=== PATIENT | female | born 1935 | race Caucasian/White ===

== ENCOUNTER 2017-04-15 05:48 | Inpatient (IN) | payer OTHER ==
[~2017-04-15] VITALS: Ht 157.5 cm; Wt 70.6 kg
--- NOTE | ~2017-04-15 | CR4 ---
[facility] A Service of [facility] RADIOLOGY TEXT RESULTS PATIENT: KIMBERLY GREER LOCATION: [place] [address] : [birth year] UNIT #: [id number] AGE: [address]: Albina Baca MD SEX: F ORDER DR: [id number] [facility] [address] [facility]. [place], [place] [address] [id number] MR#: [id number] #: [id number] NAME: KIMBERLY GREER. : 1935 SEX: F STUDY DATE/TIME: 04/17/2017 8:22 UNIT: [facility] ROOM: [facility] STUDY DESCRIPTION: CR Abdomen Flat Upright or Dec Attending Physician: Albina Baca M.D. Ordering Physician: Niles Leach M.D. Primary Care Physician: Hood Villa M.D. MEDICAL IMAGING REPORT This report is preliminary unless electronic signature is present EXAM Flat and upright abdomen 04/17/2017 INDICATIONS Abdominal pain, pancreatitis, small bowel obstruction symptoms 4 days. TECHNIQUE Flat and upright abdomen compared with CT 04/15/2017. FINDINGS Upright view demonstrates no free air. There are air-fluid levels within nondilated small bowel loops centrally in the abdomen. There is air and stool within the colon. Findings suggest a small bowel ileus. No mass effect or concerning calcifications. Probable vascular calcifications in the pelvis. Degenerative change in the lumbar spine with a left lumbar curve. IMPRESSION 1. No evidence of free air. There are air-fluid levels in nondilated small bowel loops likely reflecting an underlying small bowel ileus. Colonic gas also present. Dictated by... Romeo Adams M.D. THIS IS AN ELECTRONICALLY VERIFIED REPORT Romeo Adams M.D. at 04/18/2017 7:34 AM CACHORRO/tessy TD: 04/18/2017 06:48 JOB #: [id number] [facility] A Service [facility] RADIOLOGY TEXT RESULTS PATIENT: KIMBERLY GREER [facility] [place] [address] [id number] : [birth year] UNIT #: [id number] AGE: [address]: Albina Baca MD SEX: F ORDER DR: MEDICAL IMAGING REPORT Page 1 of 1 COPY
--- NOTE | ~2017-04-15 | EKG ---
PATIENT: KIMBERLY GREER UNIT #: [id number] Ventricular Rate: 61 BPM Atrial Rate: 61 BPM P-R Interval: 230 ms QRS Duration: 138 ms Q-T Interval: 430 ms QTC Calculation(Bezet): 432 ms P Flint: 74 degrees Calculated R Flint: 32 degrees Calculated T Flint: 50 degrees Diagnosis Line: Sinus rhythm with 1st degree A-V block with Diagnosis Line: Premature supraventricular complexes and with Diagnosis Line: occasional Premature ventricular complexes Diagnosis Line: Non-specific intra-ventricular conduction block Diagnosis Line: Abnormal ECG Diagnosis Line: When compared with ECG of 28-OCT-2012 09:16, Diagnosis Line: Premature ventricular complexes are now Present Diagnosis Line: Premature supraventricular complexes are now Diagnosis Line: Present Diagnosis Line: QRS duration has increased Diagnosis Line: T wave amplitude has decreased in Inferior leads Diagnosis Line: Confirmed by LANG MA MD ([id number]) on Diagnosis Line: 04/15/2017 11:38:23 AM INTERPRETING MD: ANIL ESPARZA
--- NOTE | ~2017-04-15 | HP ---
Unit #: [id number] #: [id number] Patient: KIMBERLY GREER [id number] [address] [address] [id number] I MR#: [id number] NAME: KIMBERLY GREER ROOM: 255[address] Age: 82 Sex: F Admission Date: 04/15/2017 : 1935 Attending Physician: Albina Baca M.D. Primary Care Physician: Hood Villa M.D. HISTORY AND PHYSICAL CHIEF COMPLAINT Severe abdominal cramps with vomiting. HISTORY OF PRESENT ILLNESS The patient is an 82-year-old female with past medical history of hypertension, cervical cancer, who presented to the emergency department for evaluation of the above. The patient states that she was in her usual state of health until the evening prior to admission around 10 p.m. when she experienced abdominal pain. She states that the pain is in the upper abdomen. She describes it as "severe." There are no exacerbating or alleviating factors. She states that she had similar pain on April 10 and that was less severe and resolved spontaneously. She has had two bouts of nonbloody emesis and no diarrhea within the past 24 hours. She denies any urinary symptoms. No fever. No cough or cold symptoms. In the emergency department, initial pulse and blood pressure were 75 and 148/70 respectively. Amylase and lipase are 183 and 260 respectively. She was given 1 L of normal saline as well as 4 mg of Zofran, 20 mg of Pepcid. She is being admitted to [facility] for evaluation and further treatment. PAST MEDICAL HISTORY 1. The patient denies hospitalizations within the past 10 years. 2. Hypertension. 3. History of cervical cancer, status post hysterectomy and radiation treatment. PAST SURGICAL HISTORY 1. Hysterectomy. 2. Thyroidectomy for benign problem. 3. Surgery for broken femur. SOCIAL HISTORY The patient lives alone. There is no tobacco or alcohol use. FAMILY HISTORY Notable for Parkinson disease. ALLERGIES No known allergies. HOME MEDICATIONS Unit #: [id number] #: [id number] Patient: KIMBERLY GREER Lisinopril 10 mg daily. REVIEW OF SYSTEMS A complete review of systems is negative except as indicated in the HPI. The patient states that she has had endoscopy but it has been more than 10 years ago (no records). DIAGNOSTIC STUDIES LABORATORY: Amylase and lipase are 183 and 260 respectively. BUN and creatinine are 23 and 1.3 respectively, glucose 122. Complete blood count notable for white blood cell count of 10.7. Troponin is less than 0.05. Lactic acid is 1.3. Urinalysis notable for trace leukocyte esterase, 5-10 red blood cells. CARDIOVASCULAR: EKG shows sinus rhythm with first degree AV block and occasional PVCs, rate of 61 beats per minute. PHYSICAL EXAMINATION VITAL SIGNS: Temperature is 97.9, pulse 75, respirations 18, blood pressure 148/70, oxygen saturation 99% on room air. GENERAL: The patient is a very pleasant female who is awake and alert in no acute distress. HEENT: The head is atraumatic. Mucous membranes are moist. NECK: Supple. Trachea is midline. CARDIOVASCULAR: Regular rate and rhythm. LUNGS: Clear to auscultation bilaterally with no increased work of breathing. ABDOMEN: Soft. She is tender to palpation in the epigastric area. Bowel sounds are present in all four quadrants. EXTREMITIES: Nontender with no pedal edema. NEUROLOGIC: The patient is awake and alert. She follows commands. PSYCHIATRIC: Mood and affect are normal. The patient is cooperative. SKIN: Skin of examined areas is warm and dry. ASSESSMENT The patient is an 82-year-old female with: 1. Acute pancreatitis with amylase and lipase of 183 and 260 respectively. The patient is on lisinopril, which could be contributing. 2. Leukocytosis with white blood cell count of 10.7. 3. Acute kidney injury: The patient's creatinine is 1.3. Creatinine was 1May 17, 2013. 4. Hypertension. 5. History of cervical cancer, status post hysterectomy and radiation treatment. PLAN 1. Admit to intermediate level. 2. NPO. 3. Normal saline at 75 mL/hr. 4. P.r.n. Zofran. 5. Protonix. 6. Fasting lipid panel. 7. Check CT of the abdomen and pelvis without contrast. 8. Serial cardiac enzymes. 9. Blood cultures x2 for further evaluation of leukocytosis. 10. Repeat labs in the morning including amylase and lipase. 11. SCDs for DVT prophylaxis. Unit #: [id number] #: [id number] Patient: KIMBERLY GREER 12. Additional workup and consultants based on above. Dictated by Emi Fishman/hamzah TD: 04/15/2017 12:11 JOB #: [id number] HISTORY AND PHYSICAL Page 1 of 1 X Albina Baca MD X HISTORY AND PHYSICAL
--- NOTE | ~2017-04-15 | DS ---
Unit #: [id number] #: [id number] Patient: KIMBERLY GREER [id number] [address] [address] [id number] I MR#: [id number] NAME: KIMBERLY GREER ROOM: 55 Age: 82 Sex: F Admission Date: 04/15/2017 : 1935 Discharge Date: 04/19/2017 Attending Physician: Michael Garcia M.D. Primary Care Physician: Hood Vlila M.D. DISCHARGE SUMMARY DISCHARGE DIAGNOSES 1. Acute pancreatitis. 2. Small bowel obstruction. 3. Ileus. HOSPITAL COURSE The patient is an 82-year-old woman who presented to the hospital with significant abdominal pain located over the epigastric area associated with vomiting. The patient had a CAT scan of the abdomen that demonstrated dilated pancreatic duct at 9 mm, no mass seen. Patient also had dilated small bowel loops with distal (1) suggestive of possible small bowel obstruction or ileus. During her admission, she was kept NPO. Received IV fluids for hydration. Her small bowel obstruction eventually resolved. She started having bowel movements and tolerating meals. Also during her admission she was followed by gastroenterology who plans on doing an outpatient endoscopic ultrasound for further evaluation of the pancreas and dilated pancreatic duct. The patient's TSH was noted to be elevated at 6.73. The patient will be started on low-dose levothyroxine 25 mcg tab one p.o. once daily. DISCHARGE MEDICATIONS 1. Lisinopril 10 mg half tablet p.o. once daily. 2. Pepcid 20 mg tab one p.o. once daily. 3. Levothyroxine 25 mcg tab one p.o. once daily. DISCHARGE INSTRUCTIONS 1. Patient needs to followup with electric meter technician, Dr. Leach, as an outpatient for further outpatient workup with endoscopic ultrasound for evaluation of the pancreas and pancreatic duct. 2. Patient also to follow up with primary care physician. Dictated by... Emi Zarate/hamzah TD: 04/20/2017 16:59 JOB #: [id number] Unit #: [id number] #: [id number] Patient: KIMBERLY GREER DISCHARGE SUMMARY Page 1 of 1 X X DISCHARGE SUMMARY
--- NOTE | ~2017-04-15 | CT4 ---
[facility] A Service of [facility] RADIOLOGY TEXT RESULTS PATIENT: KIMBERLY GREER LOCATION: [facility] [id number] : 36 UNIT #: [id number] AGE: [address]: Albina Baca MD SEX: F ORDER DR: [id number] [facility] [address] [facility]. [place], [place] [address] [id number] I MR#: [id number] Acc #: [id number] NAME: KIMBERLY GREER : 1935 SEX: F STUDY DATE/TIME: 04/15/2017 UNIT: [facility] ROOM: [address] STUDY DESCRIPTION: CT Abd and Pelv Wo Cont Attending Physician: Albina Baca M.D. Ordering Physician: Albina Baca M.D. Primary Care Physician: Hood Villa M.D. MEDICAL IMAGING REPORT This report is preliminary unless electronic signature is present EXAM CT abdomen and pelvis without contrast, 04/15/2017, 1125 hours. HISTORY 82-year-old woman with left upper quadrant pain and vomiting since 2200 hours on 04/14/2017. COMPARISON None TECHNIQUE Helical noncontrasted images were obtained from the lung bases through the pubic symphysis without oral or intravenous contrast. Sagittal and coronal reconstructions were performed. Total exam DLP 619 mGy-cm. This CT exam was performed with one or more of the following radiation dose reduction techniques: automatic exposure control, adjustment of mA and/or kV according to patient size, and iterative reconstruction. FINDINGS Images through the lung bases demonstrate overall normal heart size with no pericardial or pleural effusion. There are benign calcified nodes and a calcified granuloma at the right base. Circumferential wall thickening of the distal esophagus cannot be excluded. Images through the abdomen demonstrate a normal appearance to the liver and spleen. The gallbladder is surgically absent. The bile ducts are not dilated. The pancreas demonstrates mild atrophy. There is a dilated pancreatic duct seen at the neck and body of the pancreas, measuring up to 9 mm, which is abnormal. No mass or stone is detected in the head of the pancreas. Suggest correlation with lab values. Consider followup exam with contrast if warranted. The adrenal glands are normal. [facility] A Service of [facility] RADIOLOGY TEXT RESULTS PATIENT: KIMBERLY GREER LOCATION: [facility] [id number] : [birth year] UNIT #: [id number] AGE: [address]: Albina Baca MD SEX: F ORDER DR: There is low density at both renal pelves with the appearance favoring parapelvic cysts over dilated collecting systems. There is no ureterectasis. No stone. No evidence of renal mass. The abdominal aorta is normal in caliber with mild atherosclerotic change. The stomach contains fluid and debris but no wall thickening. The small bowel has an increased amount of fluid throughout and is mildly prominent in size. The distal small bowel loops in the pelvis are nondilated. There is no abrupt transition. Findings could represent adynamic ileus or early or partial small bowel obstruction. The appendix is normal. The colon is mostly decompressed. There is no colonic wall thickening or distension. CT pelvis demonstrates a normal appearance to the bladder. There is inferiorly displaced pelvic floor with prominence of the soft tissues of the rectum. This could be due to mild prolapse. An underlying rectal mass is difficult to exclude, given this appearance. IMPRESSION 1. There is a dilated pancreatic duct in the neck and body of the pancreas, measuring up to 9 mm with no definite mass or stones seen. There is no prior study for comparison. Correlate with lab values. Consider followup CT with contrast and pancreatic protocol, if warranted. 2. There is fluid density prominence at both renal pelves with appearance favoring multiple parapelvic cysts rather than obstruction. No stones are seen. 3. Normal appendix. 4. There are fluid-filled mildly dilated loops of small bowel proximally with decompressed loops of small bowel distally. There is increased fluid in the proximal small bowel. This could represent mild adynamic ileus; however, an early or partial small bowel obstruction could have this appearance. The colon is nondilated. 5. It appears that there is pelvic relaxation with inferior placement of the pelvic soft tissues, including the rectum. There is suggested wall thickening of the rectum in the area of possible prolapse. This is difficult to assess. Correlate with physical exam. 6. Multilevel degenerative changes in the lumbar spine with no acute fracture or malalignment. STAT * RESULT Dictated by... Lilliana Salgado M.D. THIS IS AN ELECTRONICALLY VERIFIED REPORT Lilliana Salgado M.D. at 04/15/2017 1:26 PM [facility] A Service of [facility] RADIOLOGY TEXT RESULTS PATIENT: KIMBERLY GREER LOCATION: [facility] [address] : 36 UNIT #: [id number] AGE: [address]: Albina Baca MD SEX: F ORDER DR: Ariel TD: 04/15/2017 12:21 JOB #: [id number] MEDICAL IMAGING REPORT Page 1 of 1 COPY
--- NOTE | ~2017-04-15 | CO ---
Unit #: [id number] #: [id number] Patient: KIMBERLY COELLO [id number] [address] [address] [id number] I MR#: [id number] NAME: KIMBERLY COELLO ROOM: 55 Age: 82 Sex: F Admission Date: 04/15/2017 : 1935 Attending Physician: Albina Baca M.D. Primary Care Physician: Hood Villa M.D. Consultation Date: 04/16/2017 CONSULTATION REPORT PRIMARY CARE PHYSICIAN Hood Villa M.D. REASON FOR CONSULTATION Acute pancreatitis. HISTORY OF PRESENT ILLNESS Ms. Coello is a pleasant 82-year-old female, who was admitted yesterday with complaints of abdominal pain. She had severe epigastric pain. She rates it at 10/10 associated with vomiting started . There has been no fever, but some chills. No change in bowel movements. Last bowel movement was yesterday. There has not been any hematemesis or melena. She has not had any similar symptoms in the past; however, for the last few days before this, she had a minor similar symptoms. She had her gallbladder removed long time ago. PAST MEDICAL HISTORY Cervical cancer, status post complete hysterectomy and some radiation treatment. SOCIAL HISTORY Nonsmoker. Nonalcoholic. FAMILY HISTORY Noncontributory. ALLERGIES None. MEDICATIONS At home included lisinopril. REVIEW OF SYSTEMS A complete review of systems was done. No weight loss. No change in appetite. She has no significant bowel symptoms prior to this episode. Review of all other systems was negative. DIAGNOSTIC STUDIES IMAGING STUDIES: CT scan shows a dilated PD at 9 mm. No mass seen. Dilated small-bowel loops with distal collapse, suggestive of possible small-bowel obstruction. LABORATORY RESULTS: Amylase and lipase were both elevated at 183 and 260, somewhat low today. Still not normal. BUN and creatinine are 23 and 1.3. Unit #: [id number] #: [id number] Patient: KIMBERLY COELLO Cardiac enzymes negative. Hemoglobin of 11. White count and platelet counts are normal. ASSESSMENT AND PLAN 1. Acute pain along with elevated amylase and lipase, suggestive of acute pancreatitis. The patient had significant pancreatic duct dilation that suggests chronic pancreatitis changes. She is status post cholecystectomy. She does not drink alcohol. I will be concerned about possible tumor. At this point, we continue with conservative treatment. Start on some liquids and if tolerated, advance diet. She will check for tumor markers. We will also get an EUS for further evaluation of the pancreas as an outpatient in near future. 2. Possible smell bowel obstruction, could be ileus related to acute pancreatitis, could also be related to her previous pelvic radiation. She did not have any obstructive bowel symptoms until this episode. If tolerating food, no specific treatment at this time; however, consider small bowel follow-through evaluation. 3. Abdominal pain, improving. Thank you, Dr. Baca for this interesting consult. We will follow along. Dictated by... Emi Cooper/kenrick TD: 04/16/2017 19:04 JOB #: [id number] CONSULTATION REPORT Page 1 of 1 X Niles Leach MD X CONSULTATION REPORT
[2017-04-15 07:47] LABS: BASOPHIL% 0.3 % (0-2.5); EOSINOPHIL% 0.3 % (0.0-7.0); HEMOGLOBIN 12.4 gm/dL (12.0-16.0); LYMPHOCYTE# 2.2 X10e3 (1.0-3.5); LYMPHOCYTE% 20.9 % (17.0-45.0); MEAN CELL VOLUME 88.3 FL (83-96); MEAN CORPUSCULAR HEMOGLOBIN 29.7 PG (28-34); MEAN CORPUSCULAR HGB CONC 33.6 g/dL (30-36); MEAN PLATELET VOLUME 9.2 FL (6.5-11.5); NEUTROPHIL# 7.5 X10e3 (1.5-7.1); NEUTROPHIL% 69.5 % (40-75); PLATELET COUNT 206 X10e3 (140-420); RED BLOOD COUNT 4.19 X10e (3.90-5.30); RED CELL DISTRIBUTION WIDTH 12.5 % (11.0-15.5); WHITE BLOOD COUNT 10.7 X10e3 (4.0-10.5)
[2017-04-15 07:50] LABS: DIFF IND NO
[2017-04-15 08:06] LABS: POC - CKMB 3.7 ng/mL (0.0-7.9); POC - TROPONIN <0.05 ng/mL (<=0.05)
[2017-04-15 08:31] LABS: URINE SOURCE CLEAN CATCH
[2017-04-15 08:37] LABS: URINE APPEARANCE CLEAR; URINE BILIRUBIN NEG (NEG); URINE BLOOD TRACE (NEG); URINE COLOR YELLOW; URINE GLUCOSE NEG (NEG); URINE KETONE NEG (NEG); URINE LEUKOCYTE ESTERASE TRACE (NEG); URINE NITRATE NEG (NEG); URINE PROTEIN NEG (NEG); URINE SPECIFIC GRAVITY 1.019 (1.003-1.035); URINE UROBILINOGEN 0.2 MG/DL (NEG)
[2017-04-15 08:39] LABS: URINE BACTERIA AUWI NEG (NEGATIVE); URINE SQUAMOUS EPITHELIAL CELL NONE SEEN /[HPF]; UWBCS1 AUWI 0-2 (0-5)
[2017-04-15 08:46] LABS: ALBUMIN SERUM 3.6 g/dL (3.5-5.0); ALKALINE PHOSPHATASE 70 U/L (32-92); ALT (SGPT) 20 U/L (10-40); AMYLASE 183 U/L (0-46); AST (SGOT) 27 U/L (10-42); BILIRUBIN,TOTAL 0.5 mg/dL (0.2-2.0); BLOOD UREA NITROGEN 23 mg/dL (9-23); BUN/CREATININE RATIO 17.69; CALCIUM SERUM 9.5 mg/dL (8.4-10.2); CARBON DIOXIDE 26 mmol/L (22-31); CHLORIDE 101 mmol/L (100-111); CREATININE SERUM 1.3 mg/dL (0.6-1.4); GLOM FILT RATE Estimated 38.4 mL/min (>60); GLUCOSE FASTING 122 mg/dL (70-110); LIPASE 260 U/L (22-51); POTASSIUM 4.1 mmol/L (3.5-5.1); PROTEIN TOTAL SERUM 7.9 g/dL (6.0-8.3); SODIUM 135 mmol/L (135-145)
[2017-04-15 08:46] LABS: CULTURE INDICATED? NO
[2017-04-15 08:47] LABS: BILIRUBIN, DIRECT <0.1 mg/dL (0.0-0.2); BILIRUBIN,INDIRECT 0.4 mg/dL (0.0-0.9)
[2017-04-15] MEDS ORDERED: LISINOPRIL10 MG PO (09:11)
[2017-04-15 09:26] LABS: POC - CKMB 2.3 ng/mL (0.0-7.9); POC - TROPONIN <0.05 ng/mL (<=0.05)
[2017-04-15 10:17] LABS: CHOLESTEROL 209 mg/dL (0-200); HDL CHOLESTEROL 52 mg/dL (35-95); LDL CHOLESTEROL 142 mg/dL (-130); LDL/HDL RATIO 3 RATIO (0-4); TRIGLYCERIDES 73 mg/dL (10-160)
[2017-04-15] MEDS ORDERED: PATIENT'S PHARMACY (12:16)
[2017-04-15 17:13] LABS: %MB 3.4 % (0.0-4.0); MB 3.7 ng/ml
[2017-04-15 22:39] LABS: MB 3.6 ng/ml
[2017-04-16 05:43] LABS: HEMATOCRIT 31.5 % (35.0-45.0); MEAN CELL VOLUME 88.5 FL (83-96); MEAN CORPUSCULAR HEMOGLOBIN 30.8 PG (28-34); MEAN CORPUSCULAR HGB CONC 34.8 g/dL (30-36); RED BLOOD COUNT 3.56 X10e (3.90-5.30); RED CELL DISTRIBUTION WIDTH 12.7 % (11.0-15.5); WHITE BLOOD COUNT 6.8 X10e3 (4.0-10.5)
[2017-04-16 06:12] LABS: ALBUMIN SERUM 2.9 g/dL (3.5-5.0); BILIRUBIN,TOTAL 0.8 mg/dL (0.2-2.0); BUN/CREATININE RATIO 15.45; CALCIUM SERUM 8.5 mg/dL (8.4-10.2); CREATININE SERUM 1.1 mg/dL (0.6-1.4); GLOM FILT RATE Estimated 47.1 mL/min (>60); POTASSIUM 4.7 mmol/L (3.5-5.1); PROTEIN TOTAL SERUM 6.1 g/dL (6.0-8.3)
[2017-04-17 05:36] LABS: HEMATOCRIT 30.4 % (35.0-45.0); HEMOGLOBIN 10.4 gm/dL (12.0-16.0); MEAN CELL VOLUME 88.2 FL (83-96); MEAN CORPUSCULAR HEMOGLOBIN 30.3 PG (28-34); MEAN CORPUSCULAR HGB CONC 34.3 g/dL (30-36); MEAN PLATELET VOLUME 9.1 FL (6.5-11.5); RED BLOOD COUNT 3.44 X10e (3.90-5.30); RED CELL DISTRIBUTION WIDTH 12.6 % (11.0-15.5); WHITE BLOOD COUNT 4.5 X10e3 (4.0-10.5)
[2017-04-17 06:17] LABS: ALBUMIN SERUM 2.8 g/dL (3.5-5.0); CALCIUM SERUM 8.2 mg/dL (8.4-10.2); GLOM FILT RATE Estimated 52.8 mL/min (>60); POTASSIUM 4.1 mmol/L (3.5-5.1)
[2017-04-18 07:43] LABS: ALBUMIN SERUM 3.2 g/dL (3.5-5.0); BILIRUBIN,TOTAL 0.4 mg/dL (0.2-2.0); CALCIUM SERUM 8.8 mg/dL (8.4-10.2); GLOM FILT RATE Estimated 52.8 mL/min (>60); POTASSIUM 4.6 mmol/L (3.5-5.1); PROTEIN TOTAL SERUM 6.6 g/dL (6.0-8.3)
[2017-04-19] MEDS ORDERED: LEVOTHYROXINE25 MCG PO (11:03)
[2017-04-19] MEDS ORDERED: PEPCID AC20 M2 PO (11:05)
[2017-04-20 04:48] LABS: CA 19-9 13 U/mL (<34); CA125 6 U/mL (<35)
== END 2017-04-19 11:37 | disposition home or self-care (01) | DRG 439 ==
LOC: CED 05:48 → CEDOF 09:20 → C5B 09:20 → CED 09:44 → CEDOF 09:44 → C5B 20:46 → CEDOF 20:46 → C5B 04-18 09:58
PROVIDERS: Emergency Medicine; Family Medicine; Internal Medicine
DX: K85.90 Acute pancreatitis without necrosis or infection, unspecified (principal); K56.60 Unspecified intestinal obstruction; N17.9 Acute kidney failure, unspecified; K56.7 Ileus, unspecified; I10 Essential (primary) hypertension; Z85.41 Personal history of malignant neoplasm of cervix uteri; Z90.710 Acquired absence of both cervix and uterus; K86.89 Other specified diseases of pancreas; E89.0 Postprocedural hypothyroidism
CPT/HCPCS: 36415; 74020; 74176; 80048; 80053; 80061; 80076; 81003; 82150; 82378; 82550; 82553; 83605; 83690; 84443; 84484; 85025; 85027; 86301; 86304; 87040; 93005; 96361; 96374; 96375; 99285; C9113; J2270; J2405